=== PATIENT | male | born 1960 | race Caucasian/White ===

== ENCOUNTER → 2018-08-02 | Outpatient (CLI) | payer OTHER ==
[~2018-08-02] MED LIST: LIPITOR 20 MG T20 M1 PO; LOSARTAN-HCTZ1 EAC2 PO; ZOCOR20 MG PO
[2018-08-02 15:18] VITALS: BP 139/73
== END | disposition home or self-care (01) ==
LOC: CATH 14:47
DX: I87.2 Venous insufficiency (chronic) (peripheral) (principal); Z53.8 Procedure and treatment not carried out for other reasons; I10 Essential (primary) hypertension; E78.5 Hyperlipidemia, unspecified; I73.9 Peripheral vascular disease, unspecified; I25.10 Atherosclerotic heart disease of native coronary artery without angina pectoris; Z82.49 Family history of ischemic heart disease and other diseases of the circulatory system; Z98.890 Other specified postprocedural states; Z79.899 Other long term (current) drug therapy

== ENCOUNTER → 2018-08-14 | Outpatient (CLI) | payer OTHER ==
--- NOTE | 2018-08-14 12:55 | NUR ---
Pt arrived to [facility] holding room 4 for endovenous laser ablation per Dr. Urbano. 149/95, HR 66, Temp 97.5, RR-18, O2 sat 98%. NKDA. Appropriate permit signed.
--- NOTE | 2018-08-14 16:21 | NUR ---
Pt awake and alert. Reviewed discharge instructions. Prescription sent to pharmacy per Ray Douglass RN. Copy of instructios given to pt. Pt discharged to home per wheelchair. angela Fox daughter is transporting him home.
== END | disposition home or self-care (01) ==
LOC: OR 12:18 → CATH 12:18
DX: I87.2 Venous insufficiency (chronic) (peripheral) (principal); I87.321 Chronic venous hypertension (idiopathic) with inflammation of right lower extremity; R22.41 Localized swelling, mass and lump, right lower limb; Z79.899 Other long term (current) drug therapy; Z98.890 Other specified postprocedural states